=== PATIENT | female | born 1965 | race Two or more races ===

== ENCOUNTER 2019-02-11 10:32 | Outpatient (CLI) | payer OTHER ==
--- NOTE | 2019-02-11 15:45 | Consultation ---
DATE OF CONSULTATION: 02/11/2019 CONSULTING PHYSICIAN: Dat Philippe M.D. CHIEF COMPLAINT: Low blood sugars, pancreatic mass. HISTORY OF PRESENT ILLNESS: This is a very pleasant 53-year-old female with few medical problems, who was referred to us after having low blood sugar and high insulin. A CT of the abdomen and pelvis showed a question of pancreatic mass, questionable insulinoma. The patient was referred for EUS. PAST MEDICAL HISTORY: 1. Asthma. 2. Gastritis. PAST SURGICAL HISTORY: Cholecystectomy. MEDICATIONS: Please see a long medication reconciliation list. ALLERGIES: No known drug allergies. FAMILY HISTORY: Father had lung cancer, mother had breast cancer. SOCIAL HISTORY: The patient denies any tobacco, alcohol, or drug abuse. REVIEW OF SYSTEMS: Positive for constipation and frequent vomiting. PHYSICAL EXAMINATION: GENERAL: This is a well-developed female, in no acute distress. HEENT: Normocephalic, atraumatic. Sclerae anicteric. NECK: Supple. No evidence of obvious lymphadenopathy. CARDIOVASCULAR: Regular rate, rhythm. Plus S1, S2. LUNGS: Clear to auscultation bilaterally. ABDOMEN: Positive bowel sounds. Soft and nontender. No rebound. No guarding. No peritoneal sign. EXTREMITIES: No cyanosis. No clubbing. No edema. ASSESSMENT AND PLAN: This is a 53-year-old female with questionable insulinoma. Plan to schedule for endoscopic ultrasound with FNA of the mass. constipation. The patient was given MiraLAX 17 g p.o. daily. The patient was instructed about the risks and benefits of procedure and we are going to schedule her as soon as authorization is obtained. Dat Philippe M.D. DR: BURKE JOB#: [id number] CC:
[2019-02-11] MEDS ORDERED: OMEPRAZOLE40 M1 ORAL (16:15)
[2019-02-11] MEDS ORDERED: FLONASE1 SPRAYS NASAL (16:15)
[2019-02-11] MEDS ORDERED: PROAIR HFA8.5 GM INH (16:15)
[2019-02-11] MEDS ORDERED: TAB-A-VITE1 EACH ORAL (16:15)
[2019-02-11] MEDS ORDERED: ABILIFY5 MG ORAL (16:15)
[2019-02-11] MEDS ORDERED: BUPROPION HCL100 M1 ORAL (16:15)
[2019-02-11] MEDS ORDERED: NYSTATIN CREAM15 GM TOPIC (16:15)
[2019-02-11] MEDS ORDERED: VITAMIN D-40010 MCG PO (16:15)
[2019-02-11] MEDS ORDERED: FAMOTIDINE20 MG ORAL (16:15)
[2019-02-11] MEDS ORDERED: GABAPENTIN600 MG ORAL (16:15)
[2019-02-11] MEDS ORDERED: ZOFRAN4 M3 ORAL (16:15)
[2019-02-11] MEDS ORDERED: IBUPROFEN200 MG ORAL (16:15)
[2019-02-11] MEDS ORDERED: MAPAP325 M1 PO (16:15)
[2019-02-11] MEDS ORDERED: LORATADINE10 M1 PO (16:15)
[2019-02-11] MEDS ORDERED: FISH OIL CAP1000 MG ORAL (16:15)
[2019-02-11] MEDS ORDERED: PROMETHAZINE DM (16:15)
== END 2019-02-11 14:17 | disposition home or self-care (01) ==
LOC: PAN 10:32
DX: E16.2 Hypoglycemia, unspecified (principal); K86.9 Disease of pancreas, unspecified; Z90.49 Acquired absence of other specified parts of digestive tract; K59.00 Constipation, unspecified; R11.10 Vomiting, unspecified

== ENCOUNTER 2019-07-17 11:44 | Outpatient (CLI) | payer OTHER ==
[~2019-07-17 11:44] MED LIST: ABILIFY5 MG ORAL; BUPROPION HCL100 M1 ORAL; FAMOTIDINE20 MG ORAL; FISH OIL CAP1000 MG ORAL; FLONASE1 SPRAYS NASAL; GABAPENTIN600 MG ORAL; IBUPROFEN200 MG ORAL; LORATADINE10 M1 PO; MAPAP325 M1 PO; NYSTATIN CREAM15 GM TOPIC; OMEPRAZOLE40 M1 ORAL; PROAIR HFA8.5 GM INH; PROMETHAZINE DM; TAB-A-VITE1 EACH ORAL; VITAMIN D-40010 MCG PO; ZOFRAN4 M3 ORAL
[2019-07-17 15:08] VITALS: BP 128/83
[2019-07-17] MEDS ORDERED: insulin (15:16)
--- NOTE | 2019-07-17 16:30 | Consultation ---
DATE OF CONSULTATION: 07/17/2019 CONSULTING PHYSICIAN: Dat Philippe MD. CHIEF COMPLAINT: Nausea, vomiting, abdominal pain. HISTORY OF PRESENT ILLNESS: This is a 54-year-old female with history of pancreatic neuroendocrine tumor, recently had a surgery, had almost subtotal pancreatectomy and splenectomy. Postprocedure, patient had developed diabetes. Currently patient lives in a board and care type of the correction type of place. She was referred to us for complaint of nausea. PAST MEDICAL HISTORY: 1. History of pancreatic neuroendocrine tumor. 2. New diagnosis of diabetes post above surgery. PHYSICAL EXAMINATION: VITAL SIGNS: Temperature is 97.5, blood pressure is 128/83, pulse is 108, respirations 20. HEENT: Normocephalic, atraumatic. Sclerae anicteric. NECK: Supple. No evidence of obvious lymphadenopathy. CARDIOVASCULAR: Regular rate and rhythm. Plus S1-S2. LUNGS: Clear to auscultation bilaterally. ABDOMEN: Positive bowel sounds. Soft. There is a scar from prior abdominal surgeries. There is minimal tenderness to palpation in the right lower quadrant. No rebound. No guarding. No peritoneal sign. 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 Patient developed new onset diabetes. She has had her blood sugars all over the . Some days, her blood sugar is too low and some days, it is too high that she required insulin. This above can cause nausea, vomiting secondary to gastroparesis from severe glucose changes. I will recommend patient to be seen by electric tool repairer for much better or study management of her blood sugar. Meanwhile, patient was given Zofran 8 mg sublingual every 8 hours as needed for preventing nausea. I did not want to give patient Reglan given the significant side effects, but we might have to do that if patient's symptoms does not improve after tight blood sugar. Patient according to her, she had a colonoscopy about a year ago. So, we will not do a colonoscopy at this time. Dat Philippe M.D. DR: MARTHA JOB#: [id number] CC:
== END 2019-07-17 13:44 | disposition home or self-care (01) ==
LOC: PAN 11:44
DX: R11.2 Nausea with vomiting, unspecified (principal); R10.9 Unspecified abdominal pain; E11.9 Type 2 diabetes mellitus without complications
CPT/HCPCS: 99212